=== PATIENT | female | born 1930 | race African-American/Black ===

== ENCOUNTER 2018-11-28 08:15 | Inpatient (IN) ==
[2018-11-26 09:50] LABS: URINE SOURCE CLEAN CATCH
--- NOTE | 2018-11-26 10:02 | EKG Report ---
Test Performed on : 11/26/2018 09:29:04 AM Test Reason : PAT Blood Pressure : / mmHG Vent. Rate : 065 BPM Atrial Rate : 065 BPM P-R Int : 182 ms QRS Dur : 060 ms QT Int : 430 ms P-R-T Axes : 040 000 018 degrees QTc Int : 447 ms Normal sinus rhythm. Septal infarct , age undetermined Abnormal ECG When compared with ECG of 15-JAN-2017 07:49, Septal infarct is now present Confirmed by Yani Giraldo MD ([id number]) on 11/27/2018 12:06:39 PM
[2018-11-26 10:24] LABS: BILIRUBIN URINE NEGATIVE (NEGATIVE); BLOOD URINE NEGATIVE (NEGATIVE); COLOR YELLOW; GLUCOSE URINE NEGATIVE (NEGATIVE); KETONE URINE NEGATIVE (NEGATIVE); LEUKOCYTES URINE TRACE (NEGATIVE); NITRITE URINE NEGATIVE (NEGATIVE); PH URINE 6.5; PROTEIN URINE NEGATIVE (NEGATIVE); SP GRAVITY URINE 1.015; TURBIDITY URINE CLEAR (CLEAR); UROBILINOGEN URINE NORMAL (NORMAL)
[2018-11-26 10:25] LABS: BASO# 0.04 X1000 (0.0-0.2); EOS# 0.13 X1000 (0.0-0.7); EOS% 3.2 % (0.0-10.0); HEMATOCRIT 38.3 % (37.0-47.0); HEMOGLOBIN 12.3 g/dL (12.0-16.0); LYMPH# 1.49 X1000 (1.2-3.4); LYMPH% 36.9 % (20.5-51.1); MCH 26.2 PG (27-31); MCHC 32.1 g/dL (33-37); MCV 81.5 FL (81-99); MONO# 0.46 X1000 (0.11-0.59); MONO% 11.4 % (1.7-9.3); MPV 12.5 FL (7.4-10.4); NEUT# 1.92 X1000 (1.4-6.5); NEUT% 47.5 % (42.2-75.2); PLT 159 X1000 (130-400); RDW 14.8 % (11.5-14.5); UR EPITHELIAL CELLS <10 /HPF (<10); URINE BACTERIA NEGATIVE /HPF; URINE RBC <10 /HPF (<10); URINE WBC <10 /HPF (<10); WBC 4.04 X1000 (4.8-10.8)
[2018-11-26 10:34] LABS: HEMOGLOBIN A1C 5.9 % (4.8-6.0)
[2018-11-26 10:35] LABS: INR 1.07
[2018-11-26 10:36] LABS: PTT 36.3 Seconds (22.3-41.8)
[2018-11-26 10:59] LABS: CALCIUM 9.9 mg/dL (8.8-10.2); CREATININE 1.3 mg/dL (0.5-0.9); POTASSIUM 4.7 mmol/L (3.5-5.1)
[2018-12-05] MEDS ORDERED: COLACE ONE (06:29)
[2018-12-05] MEDS ORDERED: PEPCID ONE (06:30)
[2018-12-05] MEDS ORDERED: CELEBREX ONE (06:30)
[2018-12-05] MEDS ORDERED: LR 1,000 ML ONE (06:30)
[2018-12-05] MEDS ORDERED: LYRICA ONE (06:30)
[2018-12-05] MEDS ORDERED: KEFZOL 1 GM/D5W 2 GM/100 ML IVPB ONE (06:30)
[2018-12-05] MEDS ORDERED: REGLAN ONE (06:30)
[2018-12-05] MEDS ORDERED: DIPRIVAN 1% ONE ×2 (06:49→08:25)
[2018-12-05] MEDS ORDERED: FENTANYL ONE (06:52)
[2018-12-05] MEDS ORDERED: DURAMORPH ONE (06:53)
[2018-12-05] MEDS ORDERED: TORADOL ONE (06:53)
[2018-12-05] MEDS ORDERED: MARCAINE 0.25% PF ONE (06:53)
[2018-12-05] MEDS ORDERED: EXPAREL 1.3% ONE (06:54)
[2018-12-05] MEDS ORDERED: CYKLOKAPRON 1,000 MG/NS 1,000 MG/100 ML IVPB ONE (06:54)
[2018-12-05] MEDS ORDERED: SODIUM CHLORIDE 0.9% ONE (06:57)
[2018-12-05] MEDS ORDERED: SUFENTA ONE (08:43)
[2018-12-05] MEDS ORDERED: LOPRESSOR ONE (09:00)
[2018-12-05] MEDS ORDERED: APRESOLINE ONE (09:04)
[2018-12-05] MEDS ORDERED: DECADRON ONE (09:26)
[2018-12-05] MEDS ORDERED: ZOFRAN ONE (09:26)
[2018-12-05 09:39] LABS: URINE SOURCE CATH
[2018-12-05] MEDS ORDERED: NEO-SYNEPHRINE ONE (09:39)
[2018-12-05 09:48] LABS: BILIRUBIN URINE NEGATIVE (NEGATIVE); BLOOD URINE NEGATIVE (NEGATIVE); COLOR YELLOW; GLUCOSE URINE NEGATIVE (NEGATIVE); KETONE URINE NEGATIVE (NEGATIVE); LEUKOCYTES URINE NEGATIVE (NEGATIVE); NITRITE URINE NEGATIVE (NEGATIVE); PH URINE 6.5; PROTEIN URINE NEGATIVE (NEGATIVE); SP GRAVITY URINE 1.008; TURBIDITY URINE CLEAR (CLEAR); UROBILINOGEN URINE NORMAL (NORMAL)
[2018-12-05 09:50] LABS: UR EPITHELIAL CELLS <10 /HPF (<10); URINE BACTERIA NEGATIVE /HPF; URINE RBC <10 /HPF (<10); URINE WBC <10 /HPF (<10)
[2018-12-05] MEDS ORDERED: NS 1,000 ML ONE (10:35)
--- NOTE | 2018-12-05 10:40 | OPERATIVE NOTE ---
PROCEDURE DATE: 12/05/2018 PREOPERATIVE DIAGNOSIS: Left degenerative glenohumeral arthritis. POSTOPERATIVE DIAGNOSIS: Left degenerative glenohumeral arthritis. PROCEDURE: Left reverse total shoulder arthroplasty with a DePuy Delta Xtend size 12 press-fit stem, a 38+ 3 humeral cup, and a 38+ 2 mL lateralized eccentric glenosphere. SURGEON: Sharad Verde. CORN PRESS OPERATOR: KURTIS Valentine who was necessary for proper retraction and manipulation of the extremity during the case, and improved efficiency. SECOND HOT WIRE GLASS TUBE CUTTER: Jd Villalta RN. ANESTHESIA: General. IV FLUIDS: 1600 mL lactated Ringer's. ESTIMATED BLOOD LOSS: 200 mL. COMPLICATIONS: None. INDICATIONS: The patient is a pleasant 88-year-old female with a chronic history of pain and discomfort in her left shoulder. She had continued pain and discomfort despite appropriate nonoperative treatment. X-rays revealed significant degenerative arthritis. Recommendation was to proceed with left reverse total shoulder arthroplasty was offered. Risks and benefits of surgery were explained, including the risks of anesthesia, , bleeding, infection, failure to relieve pain, postoperative stiffness nerve injury blood clots, and other imponderables. All questions answered. Patient and family wished to proceed with surgery. DETAILS OF OPERATION: Patient was taken to the operating room and placed supine on the operating table. Once adequate anesthesia was obtained, patient's was placed in semi-Ladd beach-chair position. The left shoulder was subsequently prepped and draped in the usual sterile fashion. A standard deltopectoral incision was made with skin knife. Hemostasis was obtained using electrocautery. The deltopectoral interval was then developed. The Chaidez retractor was then placed. The attention then turned to the anterior aspect of the shoulder. The subscapularis tendon was identified and a stay suture was placed. Approximately 1 cm medial to the insertion it was released. The shoulder was then dislocated anteriorly. Further release of the posterior superior aspect of the rotator cuff was performed. A starting reamer was then passed. The sequential reaming was then conducted up to a size 10. The intramedullary guide was placed in position with the proximal humeral cutting block pinned in position approximately 15 degrees of retroversion. The humeral head was then resected. A protective disk was then placed. Attention then turned to the glenoid where circumferential dissection was performed. Retractors were then placed. A guide was placed in position. A guide pin was placed. Reaming was then conducted. The central hole was then dilated. Guide pins were removed. The wound was copiously irrigated with antibiotic pulsatile lavage. A standard Metaglene was then placed. Two locking screws and 2 nonlocking screws were placed, and had good fixation. The wound was copiously once again. A size 38+ 2 mm lateralize glenosphere was then placed. There was good positioning with eccentricity placed inferiorly. Attention was then turned to the proximal humerus where the previous size 10 to be somewhat loosening of the intramedullary guide. Therefore, a size 12 reamer was then placed. It had good purchase at this point. The intramedullary guide was placed in position and the proximal humerus was reamed. The wound was copiously with antibiotic pulsatile lavage. A size 12 press-fit stem was then impacted. The trial cup size then placed +3 femoral humeral cup and had excellent stability and range of motion. The trial cup was removed. The wound was copiously irrigated once again with antibiotic pulsatile lavage. A size 38+ 3 humeral cup was then placed. The shoulder was reduced, carried through range of motion. It had excellent stability and range of motion. The wound was copiously irrigated once again. A #2 FiberWire was then used to repair the subscapularis tendon. The Exparel was placed in deep soft tissue as well as subcutaneous tissue. Irrigation was then performed once again with antibiotic pulsatile lavage. 2-0 Vicryl was then used to repair the subcutaneous tissue followed by skin lonnie. Adaptic, sterile 4 x 4's, ABD pad, and tape applied to the left shoulder followed by a shoulder immobilizer. All counts were correct. Patient tolerated the procedure well, and was transferred to the recovery room in stable condition. cc: Sharad Verde MD
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
[2018-12-05] MEDS ORDERED: MILK OF MAGNESIA PO PRN (11:45)
[2018-12-05] MEDS ORDERED: OXY IR PO PRN (11:45)
[2018-12-05] MEDS ORDERED: ZOFRAN PO PRN (11:45)
[2018-12-05] MEDS ORDERED: MORPHINE IV PRN ×2 (11:45)
[2018-12-05] MEDS: NS 1,000 ML IV SCH ×2 (11:59→23:55)
[2018-12-05] MEDS: MORPHINE IV PRN (12:49)
[2018-12-05] MEDS: TYLENOL PO SCH ×2 (15:03→21:02)
[2018-12-05] MEDS: OXY IR PO PRN ×2 (15:03→23:54)
[2018-12-05] MEDS: KEFZOL 2 GM/D5W 2 GM/50 ML IVPB IV SCH ×2 (16:40→23:55)
[2018-12-05] MEDS ORDERED: ZOFRAN IV PRN (16:43)
[2018-12-05] MEDS ORDERED: COLACE PO SCH (21:00)
[2018-12-05] MEDS ORDERED: PERIDEX MT SCH ×2 (21:00)
[2018-12-06] MEDS: MORPHINE IV PRN (01:58)
[2018-12-06] MEDS: TYLENOL PO SCH (04:23)
[2018-12-06] MEDS: NS 1,000 ML IV SCH (04:23)
[2018-12-06 06:12] LABS: HEMATOCRIT 33.8 % (37.0-47.0); HEMOGLOBIN 10.8 g/dL (12.0-16.0)
[2018-12-06 06:28] LABS: POTASSIUM 5.1 mmol/L (3.5-5.1)
[2018-12-06 06:29] LABS: CALCIUM 8.8 mg/dL (8.8-10.2); CREATININE 1.4 mg/dL (0.5-0.9)
--- NOTE | 2018-12-06 07:26 | ORTHOPAEDICS PROGRESS NOTE ---
DATE: 12/06/2018 SUBJECTIVE: The patient is a pleasant 88-year-old female who is 1 day status post left reverse total shoulder arthroplasty. She is currently resting comfortably. PHYSICAL EXAMINATION: The patient's left upper extremity dressing is intact. She is neurovascularly intact distally. Is able flex all her fingers. LABORATORY DATA: Her hemoglobin is 10.8, hematocrit 33.8. IMPRESSION: Postoperative day #1 status post left reverse shoulder arthroplasty. PLAN: At this point, we will plan on discharging home. We will arrange for home physical therapy. Patient will follow up in the office on 12/17/2018. cc: Sharad Verde MD
[2018-12-06 07:51] VITALS: BP 114/93
[2018-12-06] MEDS ORDERED: ZETIA PO SCH (09:00)
[2018-12-06] MEDS ORDERED: PRILOSEC PO SCH (09:00)
[2018-12-06] MEDS ORDERED: ISOPTIN SR PO SCH (09:00)
== END 2018-12-06 11:23 | disposition home health service (06) | DRG 483 ==
LOC: SURHOLD 12-05 05:48 → 4N 12-05 08:26
PROVIDERS: ADMIT Orthopaedic Surgery Adult Reconstructive Orthopaedic Surgery; ATTEND Orthopaedic Surgery Adult Reconstructive Orthopaedic Surgery